=== PATIENT | female | born 1960 | race Caucasian/White ===

== ENCOUNTER → 2017-03-13 | Outpatient (CLI) | payer OTHER | LOC: CIMAGING 10:18 | DX: Z12.31 Encounter for screening mammogram for malignant neoplasm of breast (principal) | CPT/HCPCS: G0202 ==

== ENCOUNTER → 2017-03-26 | Outpatient (CLI) | payer OTHER | LOC: CIMAGING 12:43 | PROVIDERS: ATTEND Family Medicine | DX: R92.8 Other abnormal and inconclusive findings on diagnostic imaging of breast (principal) | CPT/HCPCS: 76641-PO; G0206 ==

== ENCOUNTER → 2017-04-15 | Outpatient (CLI) | payer OTHER | LOC: FIMAGING 08:45 | PROVIDERS: ATTEND Family Medicine | DX: R92.8 Other abnormal and inconclusive findings on diagnostic imaging of breast (principal) | CPT/HCPCS: G0206 ==

== ENCOUNTER → 2017-04-24 | Outpatient (CLI) | payer OTHER ==
[~2017-04-24] MED LIST: BUPIVACAINE 0.5% 10 ML SDV ONE; LIDO/EPI 1% **Not for Epidural 20 ML MDV ONE; LIDOCAINE 1% 300 MG/30 ML SDV ONE; THROMBIN (BOVINE) 5,000 UNIT VIAL TP ONE
== END ==
LOC: FIMAGING 07:12
PROVIDERS: ATTEND Radiology Diagnostic Radiology
PROC: 0HBU3ZX Excision of Left Breast, Percutaneous Approach, Diagnostic (ICD-10-PCS; principal; 2017-04-24)
DX: C50.412 Malignant neoplasm of upper-outer quadrant of left female breast (principal); Z17.0 Estrogen receptor positive status [ER+]
CPT/HCPCS: G0206

== ENCOUNTER 2017-05-23 06:17 | Day surgery (SDC) | payer OTHER ==
[2017-05-23] MEDS ORDERED: LIDOCAINE 1% 2 ML INJ ID PRN (06:36)
[2017-05-23] MEDS ORDERED: NS 1,000 ML IV ONE (06:36)
[2017-05-23] MEDS ORDERED: hydrALAZINE 20 MG/ML VIAL IVP ONE ×2 (10:00→11:15)
[2017-05-23] MEDS ORDERED: KAPVAY PO ONE (10:00)
[2017-05-23] MEDS ORDERED: hydrALAZINE 20 MG/ML VIAL ONE (10:08)
[2017-05-23] MEDS ORDERED: ceFAZolin 2 GM/DEXTROSE 100 ML IV ONE (10:16)
--- NOTE | 2017-05-23 10:18 | PDHPUP ---
History & Physical Update H&P update statement: This history and physical update is based on an assessment of the patient which was completed after admission or registration (within 24 hours), but prior to the surgery/procedure. H&P update: H&P reviewed & patient examined, no change in patient's condition since H&P completed
[2017-05-23] MEDS ORDERED: SODIUM BICARBONATE 10 MEQ/10 ML SYR IVP ONE (10:37)
[2017-05-23] MEDS ORDERED: BUPIVACAINE 0.5% 30 ML SDV ONE (10:38)
[2017-05-23] MEDS ORDERED: LIDO/EPI 1% **Not for Epidural 20 ML MDV ONE (10:38)
[2017-05-23] MEDS ORDERED: METHYLENE BLUE 0.5% 50 MG/10 ML AMP ONE (10:41)
[2017-05-23] MEDS ORDERED: LABETALOL HCL 50 MG/10 ML SYR IVP ONE (11:17)
[2017-05-23] MEDS ORDERED: LABETALOL HCL 5 MG/ML 20 ML MDV ONE (11:18)
--- NOTE | 2017-05-23 11:21 | PDANEPAE ---
ANE History of Present Illness 56 yo F with R BCA here for soft tissue excision ANE Past Medical History - Cardiovascular History Hx Hypertension: Yes Hx Arrhythmias: No Hx Chest Pain: No Hx Coronary Artery / Peripheral Vascular Disease: No Hx CHF / Valvular Disease: No Hx Palpitations: No Cardiovascular History Comment: ASYMPTOMATIC HEART MURMUR - Pulmonary History Hx COPD: No Hx Asthma/Reactive Airway Disease: No Hx Recent Upper Respiratory Infection: No Hx Oxygen in Use at Home: No Hx Sleep Apnea: No Sleep Apnea Screening Result - Last Documented: Negative - Neurologic History Hx Cerebrovascular Accident: No Hx Seizures: No Hx Dementia: No Neurologic History Comment: MIGRAINES IN PAST - Endocrine History Hx Diabetes: No Endocrine History Comment: HYPOTHYROID - Renal History Hx Renal Disorders: Yes Renal History Comment: CHRONIC RENAL INSUFFICIENCY - DUE TO LITHIUM TOXICITY. ACUTE RENAL FAILURE 2009 - Liver History Hx Hepatic Disorders: No - Neurological & Psychiatric Hx Hx Neurological and Psychiatric Disorders: Yes Neurological / Psychiatric History Comment: BIPOLAR. ANXIETY & DEPRESSION. TAKES GENERICS FOR SXS - Cancer History Hx Cancer: Yes Cancer History Comment: R BREAST - Congenital Disorder History Hx Congenital Disorders: No - GI History Hx Gastrointestinal Disorders: Yes Gastrointestinal History Comment: CONSTIPATION - Other Health History Other Health History: BRUISES EASILY - Chronic Pain History Chronic Pain: Yes (ARTHRITIS MARBELLA HIPS) - Surgical History Prior Surgeries: C SECTION X2. TONSILLECTOMY ANE Review of Systems - Exercise capacity METS (RN): 4 METS ANE Patient History - Allergies Allergies/Adverse Reactions: Beta-Blockers (Beta-Adrenergic Bloc Allergy (Severe, Verified 05/23/17 06:54) DEPRESSION Penicillins Allergy (Intermediate, Verified 05/23/17 10:31) Rash epinephrine Allergy (Verified 04/24/17 07:27) gabapentin [From Neurontin] Allergy (Verified 12/21/15 15:47) - Home Medications Home Medications: Abilify 12/21/15 [Last Taken 05/22/17 19:30] Rozerem 12/21/15 [Last Taken 05/22/17 19:30] Seroquel 12/21/15 [Last Taken 05/22/17 19:30] Synthroid 12/21/15 [Last Taken 05/23/17 05:45] Trileptal 12/21/15 [Last Taken 05/22/17 19:30] Zyprexa 12/21/15 [Last Taken 05/22/17 19:30] Herbals/Supplements -Info Only 05/08/17 [Last Taken 05/16/17] Kapvay 05/08/17 [Last Taken 05/23/17 05:45] Zaerinplon 05/08/17 [Last Taken 05/22/17 19:30] - NPO status NPO Since - Liquids (Date): 05/23/17 NPO Since - Liquids (Time): 05:45 NPO Since - Solids (Date): 05/22/17 NPO Since - Solids (Time): 20:30 - Anes Hx Anes Hx: no prior problems - Smoking Hx Smoking Status: Former smoker - Alcohol Use Alcohol Use: None - Family Anes Hx Family Anes Hx: none Family Hx Anesthesia Complications: NEG ANE Labs/Vital Signs - Vital Signs Blood Pressure: 216/101 (given hydralazine 10mgx2 now 180/90) Heart Rate: 56 Respiratory Rate: 15 O2 Sat (%): 99 Height: 166.37 cm Weight: 58.967 kg ANE Physical Exam - Airway Neck exam: FROM Mallampati Score: Class 2 Mouth exam: normal dental/mouth exam Mouth image: 1 - chipped - Pulmonary Pulmonary: no respiratory distress, clear to auscultation - Cardiovascular Cardiovascular: regular rate and rhythym - ASA Status ASA Status: III ANE Anesthesia Plan Anesthesia Plan: GA w LMA
[2017-05-23] MEDS ORDERED: fentaNYL 100 MCG/2 ML INJ ONE (11:39)
[2017-05-23] MEDS ORDERED: LIDOCAINE 2% 100 MG/5 ML SYR ONE (11:40)
[2017-05-23] MEDS ORDERED: PROPOFOL 200 MG/20 ML VIAL ONE ×2 (11:40)
[2017-05-23] MEDS ORDERED: MIDAZOLAM 2 MG/2 ML VIAL ONE (11:41)
[2017-05-23] MEDS ORDERED: epHEDrine SULFATE 10 MG/ML SYR ONE ×2 (12:05→12:24)
[2017-05-23] MEDS ORDERED: ACETAMINOPHEN 500 MG TAB PO PRN (12:28)
[2017-05-23] MEDS ORDERED: ONDANSETRON 4 MG/2 ML VIAL IVP PRN (12:28)
[2017-05-23] MEDS ORDERED: PROMETHAZINE HCL 25 MG/ML INJ IVP PRN (12:28)
[2017-05-23] MEDS ORDERED: NALOXONE HCL 0.4 MG/ML INJ IVP PRN (12:28)
[2017-05-23] MEDS ORDERED: fentaNYL 100 MCG/2 ML INJ IVP PRN (12:28)
[2017-05-23] MEDS ORDERED: OXYCODONE/APAP 5/325 TAB PO PRN (12:28)
[2017-05-23] MEDS ORDERED: HYDROmorphONE/DILAUDID 1 MG/ML SYR IVP PRN (12:28)
[2017-05-23] MEDS ORDERED: ONDANSETRON 4 MG/2 ML VIAL ONE (12:29)
[2017-05-23] MEDS ORDERED: DEXAMETHASONE 4 MG/ML VIAL ONE (12:29)
[2017-05-23] MEDS ORDERED: MIDAZOLAM 2 MG/2 ML VIAL IVP ONE (12:30)
--- NOTE | 2017-05-23 13:02 | POSTOPPROG ---
Post Op Note Date of Operation: 05/23/17 Surgeon: Andrés Wren Anesthesiologist: Dr. Crane Anesthesia: LMA Pre-op Diagnosis: R breast CA Post-op Diagnosis: same Procedure: R SLN bx, R NL lumpectomy Findings: SLN negative on frozen section Inf/Abcess present in the surg proc area at time of surgery?: No EBL: Minimal
--- NOTE | 2017-05-23 13:23 | POSTANESTH ---
Post Anesthetic Evaluation Cardiovascular Status: Normal, Stable, Similar to Pre-Op Cond Respiratory Status: Normal, Stable Level of Consciousness/Mental Status: Can Participate in Eval, Alert and Oriented Pain Control: Adequate, Prn Tx Ordered Nausea/Vomiting Control: Adequate, Prn Tx Ordered Complications Possibly Related to Anesthesia: None Noted
[2017-05-23 13:49] VITALS: RESP 16; TEMP 97.9
[2017-05-23 14:08] VITALS: O2SAT 96
[2017-05-23 14:22] VITALS: BP 143/61; PULSE 66
--- NOTE | 2017-05-23 19:26 | GOP ---
[f rep st] OPERATIVE REPORT DATE OF OPERATION: 05/23/2017 SURGEON: Jared Wren MD ANESTHESIA: Laryngeal mask anesthesia. ANESTHESIOLOGIST: Orlando Crane. PREOPERATIVE DIAGNOSIS: Right-sided breast cancer. POSTOPERATIVE DIAGNOSIS: Right-sided breast cancer. PROCEDURE PERFORMED: 1. Right-sided sentinel lymph node biopsy. 2. Right-sided needle localization lumpectomy. FINDINGS: Patient had 1 sentinel lymph node that was negative on frozen section. ESTIMATED BLOOD LOSS: 20 cc. INDICATIONS: 56-year-old female with a history of right-sided breast cancer discovered on core biop sy. The risks and benefits of the procedure were discussed with the patient and her family, their q uestions were answered, and they wished to proceed. DESCRIPTION OF PROCEDURE: Patient was in supine position. After the induction of adequate laryngea l mask anesthesia, the patient was prepped and draped in the standard surgical fashion. The sentine l lymph node was addressed first. After assessing with the Neoprobe, the right axillary area was an esthetized with 0.5% Marcaine. A transverse incision was made with a #15 blade and carried down to the subcutaneous tissue with Bovie cautery and blunt dissection. Once the axillary fat pad was ente red, the Neoprobe was used to assess the sentinel lymph node. An approximately 1 cm node was identi fied that registered over 1500 on the Neoprobe. This was sent for frozen section. During this time , the area was assessed with the Neoprobe and no further sentinel lymph nodes were identified. Hemo stasis was achieved using cautery and hemoclip application. The area was thoroughly irrigated and a spirated. Frozen section returned negative for malignancy. The subcutaneous tissue was approximate d with 3-0 Vicryl in an interrupted fashion. Skin was closed with 4-0 Monocryl in a subcuticular st itch. Wound was segregated and the right-sided lumpectomy was addressed. The area of the wire and just superior and medial to it was anesthetized with 0.5% Marcaine for loca l anesthesia. An elliptical incision was made around the wire entry site and extended superiorly an d medially. This elliptical incision was then sharply dissected to include the area of the wire. U marci transection medially, the radiologic clip was noted. Prior to completing this transection, esteban tional sharp dissection was used to occlude the more medial aspect as part of the specimen. The ent kit section was excised sharply and marked with a short stitch superiorly, a long stitch laterally, and a double stitch posteriorly. This was then sent for permanent section. The area was then caute rized for hemostasis. Three separate titanium clips in different planes were placed for postoperati ve partial breast radiation. The area had been thoroughly irrigated and aspirated. Good hemostasis was noted. The subcutaneous tissue was approximated with 3-0 Vicryl in an interrupted fashion. Sk in was closed with 4-0 Monocryl in a subcuticular stitch. The wounds were sterilely dressed, and th e patient was extubated and taken to the PACU in stable condition. COMPLICATIONS: None. DRAINS: None. /[id number]/MODL
== END 2017-05-23 14:35 | disposition home or self-care (01) ==
LOC: FSGY 06:17
PROVIDERS: ATTEND Surgery
PROC: 07B50ZX Excision of Right Axillary Lymphatic, Open Approach, Diagnostic (ICD-10-PCS; principal; 2017-05-23 11:00)
PROC: 0HBT0ZZ Excision of Right Breast, Open Approach (ICD-10-PCS; principal; 2017-05-23 11:00)
PROC: 3E0W3KZ Introduction of Other Diagnostic Substance into Lymphatics, Percutaneous Approach (ICD-10-PCS; 2017-05-23 11:00)
PROC: BH40ZZZ Ultrasonography of Right Breast (ICD-10-PCS; 2017-05-23 11:00)
DX: C50.411 Malignant neoplasm of upper-outer quadrant of right female breast (principal); Z17.0 Estrogen receptor positive status [ER+]; F31.9 Bipolar disorder, unspecified; F41.8 Other specified anxiety disorders; M16.0 Bilateral primary osteoarthritis of hip
CPT/HCPCS: 19301; 38500; 78195; A9520; J0360; J0690; J1100; J2001; J2250; J2405; J2704; J3010; J3490; Q9968

== ENCOUNTER 2017-06-10 07:40 | Day surgery (SDC) | payer OTHER ==
--- NOTE | 2017-06-10 08:39 | PDANEPAE ---
ANE History of Present Illness breast mass excision ANE Past Medical History - Cardiovascular History Hx Hypertension: Yes Hx Arrhythmias: No Hx Chest Pain: No Hx Coronary Artery / Peripheral Vascular Disease: No Hx CHF / Valvular Disease: No Hx Palpitations: No Cardiovascular History Comment: ASYMPTOMATIC HEART MURMUR - Pulmonary History Hx COPD: No Hx Asthma/Reactive Airway Disease: No Hx Recent Upper Respiratory Infection: No Hx Oxygen in Use at Home: No Hx Sleep Apnea: No Sleep Apnea Screening Result - Last Documented: Negative - Neurologic History Hx Cerebrovascular Accident: No Hx Seizures: No Hx Dementia: No Neurologic History Comment: MIGRAINES IN PAST - Endocrine History Hx Diabetes: No Endocrine History Comment: HYPOTHYROID - Renal History Hx Renal Disorders: Yes Renal History Comment: CHRONIC RENAL INSUFFICIENCY - DUE TO LITHIUM TOXICITY. ACUTE RENAL FAILURE 2009 - Liver History Hx Hepatic Disorders: No - Neurological & Psychiatric Hx Hx Neurological and Psychiatric Disorders: Yes Neurological / Psychiatric History Comment: BIPOLAR. ANXIETY & DEPRESSION - Cancer History Hx Cancer: Yes Cancer History Comment: R BREAST - Congenital Disorder History Hx Congenital Disorders: No - GI History Hx Gastrointestinal Disorders: Yes Gastrointestinal History Comment: CONSTIPATION - Other Health History Other Health History: BRUISES EASILY - Chronic Pain History Chronic Pain: Yes (ARTHRITIS MARBELLA HIPS) - Surgical History Prior Surgeries: C SECTION X2. TONSILLECTOMY, BREAST BIOPSY ANE Review of Systems Review of Systems: - Exercise capacity METS (RN): 5 METS ANE Patient History - Allergies Allergies/Adverse Reactions: Beta-Blockers (Beta-Adrenergic Bloc Allergy (Severe, Verified 05/23/17 06:54) DEPRESSION Penicillins Allergy (Intermediate, Verified 05/23/17 10:31) Rash epinephrine Allergy (Verified 04/24/17 07:27) gabapentin [From Neurontin] Allergy (Verified 12/21/15 15:47) - Home Medications Home Medications: Abilify 12/21/15 [Last Taken 05/22/17 19:30] Rozerem 12/21/15 [Last Taken 05/22/17 19:30] Seroquel 12/21/15 [Last Taken 05/22/17 19:30] Synthroid 12/21/15 [Last Taken 05/23/17 05:45] Trileptal 12/21/15 [Last Taken 05/22/17 19:30] Zyprexa 12/21/15 [Last Taken 05/22/17 19:30] Herbals/Supplements -Info Only 05/08/17 [Last Taken 05/16/17] Kapvay 05/08/17 [Last Taken 05/23/17 05:45] Capoon 05/08/17 [Last Taken 05/22/17 19:30] - Anes Hx Hx Anesthesia Complications (with details): felt effects of anesthesia for approx 1 week - Smoking Hx Smoking Status: Former smoker - Family Anes Hx Family Hx Anesthesia Complications: NEG ANE Labs/Vital Signs - Vital Signs Height: 166.37 cm Weight: 58.967 kg ANE Physical Exam - Airway Mallampati Score: Class 2 Mouth exam: normal dental/mouth exam - Pulmonary Pulmonary: no respiratory distress - Cardiovascular Cardiovascular: regular rate and rhythym - ASA Status ASA Status: II ANE Anesthesia Plan Anesthesia Plan: GA w LMA
[2017-06-10] MEDS ORDERED: MIDAZOLAM 2 MG/2 ML VIAL IVP ONE (08:40)
[2017-06-10] MEDS ORDERED: LIDO/EPI 1% **for epidural** 30 ML SDV ONE (08:53)
[2017-06-10] MEDS ORDERED: BUPIVACAINE/EPI 0.5% 30 ML SDV ONE (08:53)
[2017-06-10] MEDS ORDERED: SODIUM BICARBONATE 10 MEQ/10 ML SYR IVP ONE (08:53)
[2017-06-10] MEDS ORDERED: LIDOCAINE 1% 300 MG/30 ML SDV ONE (08:54)
[2017-06-10 09:07] VITALS: PULSE 61
[2017-06-10] MEDS ORDERED: LR 1,000 ML IV ONE (09:09)
[2017-06-10] MEDS ORDERED: LIDOCAINE 2% 5 ML SDV ONE (09:29)
[2017-06-10] MEDS ORDERED: ONDANSETRON 4 MG/2 ML VIAL ONE (09:29)
[2017-06-10] MEDS ORDERED: KETOROLAC 30 MG/1 ML SDV ONE (09:29)
[2017-06-10] MEDS ORDERED: DEXAMETHASONE 4 MG/ML VIAL ONE (09:29)
[2017-06-10] MEDS ORDERED: PROPOFOL 200 MG/20 ML VIAL ONE (09:30)
[2017-06-10] MEDS ORDERED: fentaNYL 100 MCG/2 ML INJ ONE (09:30)
[2017-06-10] MEDS ORDERED: hydrALAZINE 20 MG/ML VIAL ONE (09:42)
[2017-06-10] MEDS ORDERED: BUPIVACAINE 0.5% 30 ML SDV ONE ×2 (09:45→11:24)
[2017-06-10] MEDS ORDERED: epHEDrine SULFATE 10 MG/ML SYR ONE (09:50)
[2017-06-10] MEDS ORDERED: ceFAZolin 1 GM VIAL ONE (10:06)
[2017-06-10] MEDS ORDERED: fentaNYL 100 MCG/2 ML INJ IVP PRN (11:58)
[2017-06-10] MEDS ORDERED: ENALAPRILAT DIHYDRATE 1.25 MG/ML VIAL IVP PRN (11:58)
[2017-06-10] MEDS ORDERED: ALBUTEROL 3 ML DEYVIAL IH PRN (11:58)
[2017-06-10] MEDS ORDERED: NALOXONE HCL 0.4 MG/ML INJ IVP PRN (11:58)
[2017-06-10] MEDS ORDERED: HYDROCODONE/APAP 5/325 TAB PO PRN (11:58)
[2017-06-10] MEDS ORDERED: ONDANSETRON 4 MG/2 ML VIAL IVP PRN (11:58)
--- NOTE | 2017-06-10 12:01 | POSTANESTH ---
Post Anesthetic Evaluation Cardiovascular Status: Normal, Stable Respiratory Status: Normal, Stable Level of Consciousness/Mental Status: Can Participate in Eval Pain Control: Adequate, Prn Tx Ordered Nausea/Vomiting Control: Adequate, Prn Tx Ordered Complications Possibly Related to Anesthesia: None Noted
--- NOTE | 2017-06-10 12:13 | POSTOPPROG ---
Post Op Note Date of Operation: 06/10/17 Surgeon: Andrés Wren Anesthesiologist: Dr. Meyers Anesthesia: LMA Pre-op Diagnosis: R breast Lobular CA Post-op Diagnosis: same Procedure: R breast re-excision Findings: Frozen section + x 2, third negative Inf/Abcess present in the surg proc area at time of surgery?: Yes Depth: Superfical (Skin SQ) EBL: Minimal
[2017-06-10 12:18] VITALS: RESP 14
--- NOTE | 2017-06-10 13:00 | GOP ---
[f rep st] OPERATIVE REPORT DATE OF OPERATION: 06/10/2017 SURGEON: Jared Wren MD ANESTHESIA: Laryngeal mask anesthesia. ANESTHESIOLOGIST: Dr. Meyers. PREOPERATIVE DIAGNOSIS: Right-sided invasive lobular carcinoma with positive margins. POSTOPERATIVE DIAGNOSIS: Right-sided invasive lobular carcinoma with positive margins. PROCEDURE PERFORMED: Right breast reexcision lumpectomy. FINDINGS: The patient had frozen section on the anterior margin come back positive twice. The 3rd m argin was negative on frozen section. There appeared to be liquifying old blood in the cavity. ESTIMATED BLOOD LOSS: 20 cc. INDICATIONS: 56-year-old female with a history of right breast lobular carcinoma. Risks and benefit s of the procedure were discussed with the patient and her family. Their questions were answered; th ey wish to proceed. DESCRIPTION OF PROCEDURE: Patient in supine position. After induction of adequate laryngeal mask an esthesia, the patient was prepped and draped in standard surgical fashion. 0.5% Marcaine and 1% lido macie were injected throughout the right breast for local anesthesia. The old scar was excised using a #10 blade. Upon entry, a significant amount of what appeared to be liquified clot was identified. Due to its resemblance to purulence, a culture was taken and antibiotics administered. This area w as then thoroughly washed out. Following this, the anterior margin was excised sharply. Focus was o n the anterior and superior aspects of the old lumpectomy cavity. A suture was used to liliane the new anterior margin. This was then sent for frozen section. While this was in-transit, the posterior ma rgin was excised. This was done sharply as well and taken down to the fascia of the pectoralis muscl e. A suture was used to liliane the new posterior margin. This was sent for permanent section. Hemost asis was then achieved with cautery. The frozen section on the anterior margin returned as positive for lobular carcinoma and lobular carc inoma in situ. A second anterior margin was taken by excising the skin superiorly en bloc with the n ew anterior/superior margin. This was marked in a similar fashion, sent for frozen section. However , frozen section returned positive. A third re-excision was undertaken on the anterior margin in a s imilar fashion. This returned negative on frozen section. New clips were applied using a clip appli er. The area had been thoroughly irrigated and aspirated. Hemostasis was achieved with cautery and suture ligature. The subcutaneous tissue was approximated in layers using 3-0 Vicryl in interrupted fashion. Skin was closed with 4-0 Monocryl in subcuticular stitch. Wound was dressed with Steri-Str ips. The patient was then extubated and taken to PACU in stable condition. COMPLICATIONS: None. DRAINS: None. /[id number]/MODL
[2017-06-10 13:11] VITALS: BP 161/95; O2SAT 95
[2017-06-10 13:12] VITALS: TEMP 97.9
== END 2017-06-10 13:20 | disposition home or self-care (01) ==
LOC: FSGY 07:40
PROVIDERS: ATTEND Surgery
PROC: 0HBT0ZZ Excision of Right Breast, Open Approach (ICD-10-PCS; principal; 2017-06-10 09:30)
DX: D05.01 Lobular carcinoma in situ of right breast (principal)
CPT/HCPCS: J0360; J0690; J1100; J1885; J2250; J2405; J2704; J3010

== ENCOUNTER → 2017-10-14 | Outpatient (CLI) | payer OTHER | LOC: CIMAGING 08:03 | PROVIDERS: ATTEND Internal Medicine Nephrology | DX: N18.4 Chronic kidney disease, stage 4 (severe) (principal); N28.1 Cyst of kidney, acquired | CPT/HCPCS: 76770-PO ==

== ENCOUNTER 2017-10-20 15:19 | Emergency (ER) | payer OTHER ==
[2017-10-20 15:34] VITALS: RESP 18; TEMP 98
--- NOTE | 2017-10-20 16:00 | CPEKG ---
Heart Rate: 66 RR Interval: 909 P-R Interval: 148 QRSD Interval: 84 QT Interval: 440 QTC Interval: 461 P Willows: 28 QRS Willows: -21 T Wave Willows: 33 EKG Severity - ABNORMAL ECG - EKG Impression: SINUS RHYTHM EKG Impression: PROBABLE LEFT ATRIAL ABNORMALITY EKG Impression: LEFT VENTRICULAR HYPERTROPHY Electronically Signed By: Umang Owens 21-Oct-2017 06:11:02
[2017-10-20] MEDS ORDERED: NS 500 ML IV ONE (16:02)
[2017-10-20] MEDS ORDERED: amLODIPine BESYLATE 5 MG TAB PO ONE (16:02)
--- NOTE | 2017-10-20 16:08 | EDPHY ---
HPI/HX/ROS/PE/MDM Narrative: CHIEF COMPLAINT: High blood pressure HPI: The patient is a 56-year-old female with a history of breast cancer, chronic renal insufficiency, bipolar disorder and hypertension. She recently switched from a oral clonidine to a Catapres patch a few days ago at the advice of her doctor. Since that time she has noted increased blood pressure readings. Today she noted a blood pressure of approximately 200/120 at home, with associated sense of fullness in her head. She denies chest pain, shortness of breath, numbness, weakness, tingling, vision change, syncope. She has an appointment with her starch dumper tomorrow but is concerned that her blood pressure is so high. She also states that she is very anxious. REVIEW OF SYSTEMS: Aside from elements discussed in the HPI, a comprehensive 10-point review of systems was reviewed and is negative. PMH:breast cancer, chronic renal insufficiency, bipolar disorder and hypertension SOCIAL HISTORY: Denies alcohol or drug abuse. PHYSICAL EXAM: General:Patient is alert, in no acute distress. ENT:Eyes are normal to inspection. ENT inspection normal. Neck: Normal inspection. Full range of motion. Respiratory:No respiratory distress. Breath sounds normal bilaterally. Cardiovascular: Regular rate and rhythm. Strong peripheral pulses. Normal cap refill. Abdomen:The abdomen is nontender to palpation. There are no peritoneal signs. There are normal bowel sounds. Back: Normal to inspection. No tenderness to palpation. Skin: Normal color. No rash. Warm and dry. Extremities: Normal appearance. Full range of motion. Neuro: Oriented x3. Normal motor function. Normal sensory function. ED Course: This patient presents with hypertensive urgency with a blood pressure reading of approximately 250/120. I see no signs of end-organ damage on initial evaluation. I had extensive discussion with the patient and her regarding plan of care. I explained to them that standard of care in this case would be to start an IV and give antihypertensive medications, likely followed by admission to the hospital for blood pressure management and monitoring. The patient states she is extremely reluctant to do this and they have asked if she can simply go home and take additional oral clonidine pill. I explained that this would likely be very risky given the degree of elevation of her blood pressure. The patient has a complicated history and tells me that she a) basically not take the generic versions of any medications and b) is intolerant of beta-blockers. I explained to them that this certainly limits our options. After extensive discussion, we agreed to perform a blood draw, give some slow IV fluids and start with an oral calcium channel kasia. They will reassess the long-term plan. They understand that potential delay in care may increase her risk of stroke or other end-organ damage. EKG was ordered and interpreted by myself. Please see [facility] system for official reading. 16:20: Patient is refusing oral Norvasc because it is generic, not brand name form. 16:25: Patient now agrees to take oral amlodipine. 17:30: Patient's BP has slowly come down to approximately 190/100 with IVF and amlodipine. However she got up to go to bathroom and BP now approximately 220/ 110. I had an extensive discussion with the patient and again recommended admission to the hospital for BP management and further workup. The patient refuses however, and states she would like to go home and take her normal medications as hospitalization will make her anxiety be out of control. She will take an additional oral clonidine now and will monitor her BP closely. I explained to her that she is at significant risk of CVA or other potentially life-threatening disorder because her BP is so high and that she is choosing the less safe option by refusing admission. She understands this and is comfortable with her plan. She already has plans to follow-up with her physician tomorrow, and promises to return if her BP spikes again or she develops and symptoms. MDM: This patient presents with hypertensive urgency and treatment is unfortunately limited by a number of constraints on the part of the patient. Ultimately, we were unable to make a significant difference in her blood pressure but were able to establish that there are no current signs of end-organ damage. The patient will try and manage her blood pressure overnight with oral clonidine in addition to the dose of amlodipine she was given here in the emergency department. She promises to return if symptoms worsen. I think she is making a series of bed decisions regarding her condition, but she appears sober and competent to do so and understands the risks involved. - Data Points Laboratory Results: Laboratory Results 10/20/17 16:09 10/20/17 16:09 10/20/17 10/20/17 16:09 16:09 WBC 4.86 10^3/uL 10^3/uL (3.80-9.50) RBC 3.79 10^6/uL L 10^6/uL (4.18-5.33) Hgb 12.3 g/dL L g/dL (12.6-16.3) Hct 36.2 % L % (38.0-47.0) MCV 95.5 fL fL (81.5-99.8) MCH 32.5 pg pg (27.9-34.1) MCHC 34.0 g/dL g/dL (32.4-36.7) RDW 13.5 % % (11.5-15.2) Plt Count 158 10^3/uL 10^3/uL (150-400) MPV 8.1 fL L fL (8.7-11.7) Neut % (Auto) 60.3 % % (39.3-74.2) Lymph % (Auto) 27.2 % % (15.0-45.0) Hand % (Auto) 6.8 % % (4.5-13.0) Eos % (Auto) 4.9 % % (0.6-7.6) Baso % (Auto) 0.6 % % (0.3-1.7) Nucleat RBC Rel Count 0.0 % % (0.0-0.2) Absolute Neuts (auto) 2.93 10^3/uL 10^3/uL (1.70-6.50) Absolute Lymphs (auto) 1.32 10^3/uL 10^3/uL (1.00-3.00) Absolute Monos (auto) 0.33 10^3/uL 10^3/uL (0.30-0.80) Absolute Eos (auto) 0.24 10^3/uL 10^3/uL (0.03-0.40) Absolute Basos (auto) 0.03 10^3/uL 10^3/uL (0.02-0.10) Absolute Nucleated RBC 0.00 10^3/uL 10^3/uL (0-0.01) Immature Gran % 0.2 % % (0.0-1.1) Immature Gran # 0.01 10^3/uL 10^3/uL (0.00-0.10) Sodium 143 mEq/L mEq/L (135-145) Potassium 4.4 mEq/L mEq/L (3.5-5.2) Chloride 101 mEq/L mEq/L (97-110) Carbon Dioxide 29 mEq/l mEq/l (22-31) Anion Gap 13 mEq/L mEq/L (8-16) BUN 34 mg/dL H mg/dL (7-23) Creatinine 2.5 mg/dL H mg/dL (0.6-1.0) Estimated GFR 20 Glucose 102 mg/dL H mg/dL (70-100) Calcium 9.5 mg/dL mg/dL (8.5-10.4) Troponin I < 0.012 ng/mL ng/mL (0.000-0.034) Medications Given: Discontinued Medications Amlodipine Besylate (Norvasc) 5 mg PO EDNOW ONE Stop: 10/20/17 16:03 Last Admin: 10/20/17 16:20 Dose: 5 mg Sodium Chloride (Ns) 500 mls @ 1,000 mls/hr IV EDNOW ONE PRN Reason: Protocol Stop: 10/20/17 16:31 Last Admin: 10/20/17 16:14 Dose: 500 mls General Time Seen by Provider: 10/20/17 15:27 Initial Vital Signs: Initial Vital Signs Temperature (C) 36.6 C 10/20/17 15:32 Heart Rate 68 10/20/17 15:32 Respiratory Rate 18 10/20/17 15:32 Blood Pressure 258/127 H 10/20/17 15:32 O2 Sat (%) 97 10/20/17 15:32 O2 Delivery Mode Room Air Allergies/Adverse Reactions: Beta-Blockers (Beta-Adrenergic Bloc Allergy (Severe, Verified 05/23/17 06:54) DEPRESSION Penicillins Allergy (Intermediate, Verified 05/23/17 10:31) Rash epinephrine Allergy (Verified 06/10/17 08:59) gabapentin [From Neurontin] Allergy (Verified 06/10/17 08:58) Home Medications: Medication Instructions Recorded Abilify 12/21/15 Rozerem 12/21/15 Seroquel 12/21/15 Synthroid 12/21/15 Trileptal 12/21/15 Zyprexa 12/21/15 Herbals/Supplements -Info Only 05/08/17 Kapvay 05/08/17 Zaleplon 05/08/17 Departure - Departure Disposition: Home, Routine, Self-Care Clinical Impression: Hypertensive urgency, Chronic renal insufficiency Condition: Fair Instructions: Hypertensive Crisis (ED) Additional Instructions: You have refused admission to the hospital. Please monitor your blood pressure closely and follow-up with your physician tomorrow. Return to the ED immediately for elevated BP, chest pain, headache, numbness, change in vision, passing out, shortness of breath or other symptoms. We would be happy to re- evaluate you at any time. Referrals: Tosha Montes De Oca MD [Primary Care Provider] - As per Instructions
[2017-10-20 16:13] LABS: PLATELET COUNT 158 10^3/uL (150-400)
[2017-10-20 17:38] VITALS: BP 211/111; PULSE 62; O2SAT 94
== END 2017-10-20 18:12 | disposition home or self-care (01) ==
LOC: CED 15:19
DX: I12.9 Hypertensive chronic kidney disease with stage 1 through stage 4 chronic kidney disease, or unspecified chronic kidney disease (principal); N18.9 Chronic kidney disease, unspecified; I16.0 Hypertensive urgency; E86.9 Volume depletion, unspecified; Z85.3 Personal history of malignant neoplasm of breast
CPT/HCPCS: 80048-PO; 84484-PO; 85025-PO

== ENCOUNTER → 2018-03-26 | Outpatient (CLI) | payer OTHER | LOC: FIMAGING 08:31 | PROVIDERS: ATTEND Family Medicine | DX: Z12.31 Encounter for screening mammogram for malignant neoplasm of breast (principal); Z85.3 Personal history of malignant neoplasm of breast ==

== ENCOUNTER → 2018-07-14 | Outpatient (CLI) | payer OTHER | LOC: CIMAGING 14:22 | PROVIDERS: ATTEND Physician Assistant | DX: M16.0 Bilateral primary osteoarthritis of hip (principal) | CPT/HCPCS: 93971-PO ==

== ENCOUNTER 2018-10-25 05:32 | Emergency (ER) | payer OTHER ==
--- NOTE | 2018-10-25 06:06 | EDPHY ---
H & P Stated Complaint: painful, red, hard lump LLE Source: Patient - Personal History Current Tetanus Diphtheria and Acellular Pertussis (TDAP): Yes Tetanus Vaccine Date: unsure - Medical/Surgical History Hx Asthma: No Hx Chronic Respiratory Disease: No Hx Diabetes: No Hx Cardiac Disease: No Hx Renal Disease: Yes Hx Cirrhosis: No Hx Alcoholism: No Hx HIV/AIDS: No Hx Splenectomy or Spleen Trauma: No Other PMH: c-sections,hypothyroid,hypertension,stage 4 kidney disease,total hip replacements bilateral,bipolar,breast cancer - Social History Smoking Status: Former smoker <Radha Strickland - Last Filed: 10/25/18 06:30> <CarolinaNeeta Markell - Last Filed: 10/25/18 08:47> Time Seen by Provider: 10/25/18 06:05 HPI/ROS: CC: Painful red area on the inner side of the left ankle HPI: This 57-year-old female with past medical history including hypertension, osteoarthritis, stage 4 kidney disease thought to be from lithium, breast cancer , and recent hip replacement presents to the emergency department today complaining of a tender, erythematous area on the inside aspect of her left ankle. She is worried that she might have a blood clot due to her recent hip replacement. She states she was on Xarelto after the procedure which was performed on September 11 until September 26. She does not have any other areas of tenderness or erythema on her lower leg. She has not been short of breath and denies chest pain. She does do exercises every morning and yesterday she did the elliptical machine and then used 5 lb weights around each ankle. She also uses exercise bands. She does not remember injuring the ankle. There are no open wounds. It is warm and throbs and painful to the touch. She rates it at a 4/10. No history of thromboembolic diseases. No family history of thromboembolic disease. She has not had a fever, chills, or recent illness. Her blood pressure is elevated and she states it is always elevated when she sees a physician. She just took her usual blood pressure medication upon arrival to the emergency room. REVIEW OF SYSTEMS: Constitutional: No fever, no chills. Eyes: No discharge. ENT: No sore throat. Respiratory: No cough, no shortness of breath. Cardiac: No chest pain, no palpitations. Gastrointestinal: No abdominal pain, no vomiting. Genitourinary: No hematuria. Musculoskeletal: No back pain. Skin: See HPI. Neurological: No headache. (Radha Strickland) - Medical/Surgical History PMH: PMH: Including hypertension, breast cancer, osteoarthritis, stage 4 kidney disease, Bipolar. No history of thromboembolic disease. PSH: , bilateral hip replacements FH: Father - lung cancer; Mother - endocrine disorder; No family history of thromboembolic disease. Multiple allergies including PCN - rash and body swelling, Neurontin causes swelling of the hands, ankles, dizziness, and vomiting; Colace causes severe dizziness; hello causes swelling. Sensitivities include beta-blockers which cause severe depression and severe drop in blood pressure, epinephrine which causes whole body shaking and her heart race, Valium causes severe irritability, laxative cause depression, decongestants cause depression and high blood pressure. She cannot take contrast due to her kidney function. Medications include Zyprexa 2.5 mg 1 and half tablets by mouth every night; Trileptal 300 mg take 3 tablets by mouth at bedtime; Iggy rim 8 mg take 1 tablet by mouth at bedtime; Seroquel 25 mg take 1 tablet by mouth at bedtime; Abilify 15 mg take 1 tablet by mouth 1 time daily and at bedtime; Synthroid 0.125 mg take 1 tablet by mouth 1 time daily; Arimidex 1 mg take 1 tablet by mouth 1 time daily; Catapres patch 0.1 mg apply 1 patch to skin once every 7 days; Norvasc 10 mg take 1 tablet by mouth 1 time daily; Prolia shot last given on December 04, [address] Tosha Montes De Oca, Dr. baldwin senior software qa analyst; Dr. Gongora associate professor of forestry; Dr. Norris orthopedist; Dr. Ackerman psychiatrist, Dr. Baird psychologist; Dr. Grigsby oncologist (Radha Strickland) - Social History Additional Social History: . Has a daughter. Quit smoking at age 17. (Radha Strickland) - Physical Exam Exam: General Appearance: Alert, no distress. anxious. Eyes: Pupils equal and round no pallor or injection. ENT, Mouth: Mucous membranes are moist. Respiratory: There are no retractions, lungs are clear to auscultation. Cardiovascular: Regular rate and rhythm. Dorsalis pedis pulses intact bilaterally. Gastrointestinal: Abdomen is soft and nontenderx Neurological: Awake and alert, sensory and motor exams grossly normal. Skin: Warm and dry. There is a oblong area of erythema and warmth on the inner aspect of her left ankle measuring approximately 5 x 4 cm. No vesicles or bulla. No open wounds. Musculoskeletal: Neck is supple, nontender. No warmth, cords or erythema noted in the posterior aspect of her left lower extremity. Mild pitting edema 1 + left lower extremity at the ankle. Extremities are symmetrical, full range of motion. Psychiatric: Patient is oriented X 3, there is no agitation. DIFFERENTIAL DIAGNOSIS: After history and physical exam differential diagnosis was considered for but not limited to and in no particular order: DVT, cellulitis, inflammation, friction wound (Radha Strickland) Constitutional: Initial Vital Signs Temperature (C) 36.7 C 10/25/18 05:41 Heart Rate 65 10/25/18 05:41 Respiratory Rate 18 10/25/18 05:41 Blood Pressure 173/102 H 10/25/18 05:41 O2 Sat (%) 97 10/25/18 05:41 O2 Delivery Mode Room Air Allergies/Adverse Reactions: Beta-Blockers (Beta-Adrenergic Bloc Allergy (Severe, Verified 10/25/18 05:39) DEPRESSION Penicillins Allergy (Intermediate, Verified 10/25/18 05:39) Rash epinephrine Allergy (Verified 10/25/18 05:39) gabapentin [From Neurontin] Allergy (Verified 10/25/18 05:39) Home Medications: Medication Instructions Recorded Abilify 12/21/15 Rozerem 12/21/15 Seroquel 12/21/15 Synthroid 12/21/15 Trileptal 12/21/15 Zyprexa 12/21/15 Arimidex 10/25/18 Catapres 10/25/18 Cephalexin [Keflex (*)] 500 mg PO QID 5 Days #20 cap NS 10/25/18 Norvasc 10 mg (*) 10/25/18 Prolia 10/25/18 Medical Decision Making <Radha Strickland - Last Filed: 10/25/18 06:30> - Diagnostics Imaging: Discussed imaging studies w/ job printer apprentice Radiologist <Neeta Figueroa - Last Filed: 10/25/18 08:47> - Diagnostics Imaging Results: Imaging Impressions Extremity Venous Study 10/25/18 07:21 Impression: No evidence of deep vein thrombosis in the left lower extremity. Results called and discussed with [facility] emergency department on 10/25/2018 at 8:33. ED Course/Re-evaluation: The patient was seen and examined. Vital signs were reviewed and were notable for hypertension. The patient states her blood pressure is elevated whenever she sees a physician. She also has just taken her normal blood pressure medications upon arrival to the emergency room. Prior records were reviewed. She had recent blood work 2 days ago as an outpatient and this showed the following: Sodium 142, chloride 108, potassium 4.3, bicarb 23, BUN 26, creatinine 1.9, anion gap 11, calcium 9.1, phosphorus 4.3, glucose 116, TSH 0.408, free T4 1.20 , free T3 3.85, PTH 167, urine showed no sign of infection but total protein was 60 up from 30 to on prior specimen. The area looks like a cellulitis possibly due to the ankle weights the patient is using. However, the patient's D-dimer this morning was elevated at 1580. A lower extremity ultrasound was ordered to rule out DVT. The area of erythema was outlined with a skin marker. Patient is signed out to Dr. Kathy Figueroa for follow-up on the lower extremity ultrasound, and disposition. If this US is normal without sign of DVT I would consider starting an antibiotic such as Keflex to cover for cellulitis and have the patient follow up on Saturday with her primary care provider. (Radha Strickland) Ultrasound called negative for deep vein thrombosis by Dr. Gunter at 835. Discussed radiology findings with patient. Reviewed plan of care including Keflex for possible cellulitis. Also recommended she follow up with primary care next week. Noted continued hypertension and reviewed that she should discuss this with her primary care physician. Signs and symptoms of worsening cellulitis reviewed. Stable for discharge. (Neeta Figueroa) - Data Points Point of Care Test Results: D-Dimer D-Dimer Collection Date 10/25/18 D-Dimer Collection Time 07:01 D-Dimer (ng/ml) 1580 Departure <Radha Strickland - Last Filed: 10/25/18 06:30> <Neeta Figueroa - Last Filed: 10/25/18 08:47> - Departure Clinical Impression: Cellulitis Qualifiers: Site of cellulitis: extremity Site of cellulitis of extremity: lower extremity Laterality: left Qualified Code(s): L03.116 - Cellulitis of left lower limb Hypertension Qualifiers: Hypertension type: unspecified Qualified Code(s): I10 - Essential (primary) hypertension Condition: Good Instructions: Cellulitis (ED), Hypertension (ED) Prescriptions: Cephalexin [Keflex (*)] 500 mg PO QID 5 Days #20 cap NS
[2018-10-25 08:57] VITALS: BP 166/112
== END 2018-10-25 08:58 | disposition home or self-care (01) ==
LOC: CED 05:32
DX: L03.116 Cellulitis of left lower limb (principal); I10 Essential (primary) hypertension; N18.4 Chronic kidney disease, stage 4 (severe); E03.9 Hypothyroidism, unspecified; Z85.3 Personal history of malignant neoplasm of breast
CPT/HCPCS: 93971-PO; 99284-ER

== ENCOUNTER → 2019-03-30 | Outpatient (CLI) | payer OTHER | LOC: EMCIMAGING 09:57 ==